=== PATIENT | male | born 1990 | race African-American/Black ===

== ENCOUNTER 2018-02-06 14:51 | Emergency (ER) | payer OTHER ==
[~2018-02-06] VITALS: Ht 180.3 cm; Wt 125.0 kg
[~2018-02-06 14:51] MED LIST: TRAM50TA94 PO
[2018-02-06] MEDS ORDERED: ONDANSETRON HCL 4MG/2ML VIAL IV STA (15:08)
[2018-02-06] MEDS ORDERED: SODIUM CHLORIDE 0.9% 1,000 ML IV ONE (15:08)
[2018-02-06] MEDS ORDERED: KETOROLAC 30MG/ML VIAL IV STA (15:08)
[2018-02-06 16:22] LABS: BASOPHILS % 0.9 % (0.0-2.0); HEMATOCRIT. 39.6 % (42.0-52.0); HEMOGLOBIN. 13.9 g/dL (14.0-18.0); LYMPHOCYTES % 20.7 % (20.0-50.0); MEAN CORPUSCULAR VOLUME 91.1 fL (80.0-94.0); MEAN PLATELET VOLUME 7.8 fl (7.4-10.4); MONOCYTES % 7.6 % (2.0-8.0); NEUTROPHILS % 69.8 % (40.0-76.0); PLATELET 316 x1000/uL (130-400); RED BLOOD CELL COUNT 4.35 mill/uL (4.7-6.1); RED CELL DISTRIBUTION WIDTH 12.5 % (11.6-14.6)
[2018-02-06 16:29] LABS: CHLORIDE 105 mEq/L (98-107)
[2018-02-06 17:25] VITALS: BP 150/88
== END 2018-02-06 17:45 | disposition home or self-care (01) ==
LOC: ER 14:53
DX: R10.33 Periumbilical pain (principal); K43.9 Ventral hernia without obstruction or gangrene; R03.0 Elevated blood-pressure reading, without diagnosis of hypertension; Z90.49 Acquired absence of other specified parts of digestive tract
CPT/HCPCS: 36415; 74176; 80053; 83690; 85025; 96361; 96374; 96375; 99285; J1885; J2405; J7030

== ENCOUNTER 2022-09-04 16:46 | Emergency (ER) | payer OTHER ==
[~2022-09-04] VITALS: Ht 182.9 cm; Wt 141.0 kg
[2022-09-04 17:00] VITALS: BP 177/93
[2022-09-04] MEDS ORDERED: IBUPROFEN 400MG TABLET PO ONE (19:30)
[2022-09-04] MEDS ORDERED: IBUP-2028 MT (20:46)
== END 2022-09-04 20:55 | disposition home or self-care (01) ==
LOC: ER 16:46
DX: M79.605 Pain in left leg (principal); Z90.49 Acquired absence of other specified parts of digestive tract
CPT/HCPCS: 93971; 99284